=== PATIENT | male | born 1935 | race Caucasian/White ===

== ENCOUNTER → 2019-04-09 | Outpatient (CLI) | payer OTHER, BC | LOC: HYPER 06:48 | DX: L59.8 Other specified disorders of the skin and subcutaneous tissue related to radiation (principal); T81.89XD Other complications of procedures, not elsewhere classified, subsequent encounter; C4A.4 Merkel cell carcinoma of scalp and neck; C91.90 Lymphoid leukemia, unspecified not having achieved remission; Z85.828 Personal history of other malignant neoplasm of skin; Z85.46 Personal history of malignant neoplasm of prostate; Z79.01 Long term (current) use of anticoagulants; Z79.82 Long term (current) use of aspirin; Y84.2 Radiological procedure and radiotherapy as the cause of abnormal reaction of the patient, or of later complication, without mention of misadventure at the time of the procedure; Y83.8 Other surgical procedures as the cause of abnormal reaction of the patient, or of later complication, without mention of misadventure at the time of the procedure ==

== ENCOUNTER → 2019-04-30 | Outpatient (CLI) | payer OTHER, BC | LOC: HYPER 07:29 | DX: L59.8 Other specified disorders of the skin and subcutaneous tissue related to radiation (principal); T81.89XD Other complications of procedures, not elsewhere classified, subsequent encounter; C4A.4 Merkel cell carcinoma of scalp and neck; C91.10 Chronic lymphocytic leukemia of B-cell type not having achieved remission; C91.90 Lymphoid leukemia, unspecified not having achieved remission; Z79.01 Long term (current) use of anticoagulants; Z79.82 Long term (current) use of aspirin; Z85.46 Personal history of malignant neoplasm of prostate; Y84.2 Radiological procedure and radiotherapy as the cause of abnormal reaction of the patient, or of later complication, without mention of misadventure at the time of the procedure; Y83.8 Other surgical procedures as the cause of abnormal reaction of the patient, or of later complication, without mention of misadventure at the time of the procedure ==

== ENCOUNTER → 2019-05-21 | Outpatient (CLI) | payer OTHER, BC | LOC: HYPER 10:00 | DX: L59.8 Other specified disorders of the skin and subcutaneous tissue related to radiation (principal); T81.89XD Other complications of procedures, not elsewhere classified, subsequent encounter; C4A.4 Merkel cell carcinoma of scalp and neck; C91.90 Lymphoid leukemia, unspecified not having achieved remission; Z85.46 Personal history of malignant neoplasm of prostate; Z79.01 Long term (current) use of anticoagulants; Z79.82 Long term (current) use of aspirin; Y84.2 Radiological procedure and radiotherapy as the cause of abnormal reaction of the patient, or of later complication, without mention of misadventure at the time of the procedure; Y83.8 Other surgical procedures as the cause of abnormal reaction of the patient, or of later complication, without mention of misadventure at the time of the procedure ==

== ENCOUNTER → 2019-07-09 | Outpatient (CLI) | payer OTHER, BC | LOC: HYPER 09:36 | DX: T81.89XD Other complications of procedures, not elsewhere classified, subsequent encounter (principal); L59.8 Other specified disorders of the skin and subcutaneous tissue related to radiation; C4A.4 Merkel cell carcinoma of scalp and neck; C91.90 Lymphoid leukemia, unspecified not having achieved remission; L98.492 Non-pressure chronic ulcer of skin of other sites with fat layer exposed; Z79.01 Long term (current) use of anticoagulants; Z79.82 Long term (current) use of aspirin; Z85.46 Personal history of malignant neoplasm of prostate; Z85.828 Personal history of other malignant neoplasm of skin; Y83.8 Other surgical procedures as the cause of abnormal reaction of the patient, or of later complication, without mention of misadventure at the time of the procedure; Y84.2 Radiological procedure and radiotherapy as the cause of abnormal reaction of the patient, or of later complication, without mention of misadventure at the time of the procedure ==

== ENCOUNTER → 2019-08-06 | Outpatient (CLI) | payer OTHER, BC | LOC: HYPER 09:19 | DX: T81.89XD Other complications of procedures, not elsewhere classified, subsequent encounter (principal); L98.492 Non-pressure chronic ulcer of skin of other sites with fat layer exposed; L59.8 Other specified disorders of the skin and subcutaneous tissue related to radiation; C4A.4 Merkel cell carcinoma of scalp and neck; C91.90 Lymphoid leukemia, unspecified not having achieved remission; Z85.46 Personal history of malignant neoplasm of prostate; Z85.820 Personal history of malignant melanoma of skin; Z79.01 Long term (current) use of anticoagulants; Z79.82 Long term (current) use of aspirin; X58.XXXD Exposure to other specified factors, subsequent encounter; Y84.2 Radiological procedure and radiotherapy as the cause of abnormal reaction of the patient, or of later complication, without mention of misadventure at the time of the procedure; Y83.8 Other surgical procedures as the cause of abnormal reaction of the patient, or of later complication, without mention of misadventure at the time of the procedure ==

== ENCOUNTER → 2019-08-13 | Outpatient (CLI) | payer OTHER, BC | LOC: HYPER 09:36 | DX: T81.89XD Other complications of procedures, not elsewhere classified, subsequent encounter (principal); L98.492 Non-pressure chronic ulcer of skin of other sites with fat layer exposed; L59.8 Other specified disorders of the skin and subcutaneous tissue related to radiation; C4A.4 Merkel cell carcinoma of scalp and neck; C91.90 Lymphoid leukemia, unspecified not having achieved remission; Z79.01 Long term (current) use of anticoagulants; Z79.82 Long term (current) use of aspirin; Z85.828 Personal history of other malignant neoplasm of skin; Z85.46 Personal history of malignant neoplasm of prostate; Y84.2 Radiological procedure and radiotherapy as the cause of abnormal reaction of the patient, or of later complication, without mention of misadventure at the time of the procedure; Y83.8 Other surgical procedures as the cause of abnormal reaction of the patient, or of later complication, without mention of misadventure at the time of the procedure ==

== ENCOUNTER → 2019-08-20 | Outpatient (CLI) | payer OTHER, BC | LOC: HYPER 09:28 | DX: L59.8 Other specified disorders of the skin and subcutaneous tissue related to radiation (principal); L98.492 Non-pressure chronic ulcer of skin of other sites with fat layer exposed; C4A.4 Merkel cell carcinoma of scalp and neck; C91.90 Lymphoid leukemia, unspecified not having achieved remission; Z79.01 Long term (current) use of anticoagulants; Z79.82 Long term (current) use of aspirin; Z85.46 Personal history of malignant neoplasm of prostate; Z85.828 Personal history of other malignant neoplasm of skin; Y84.2 Radiological procedure and radiotherapy as the cause of abnormal reaction of the patient, or of later complication, without mention of misadventure at the time of the procedure ==

== ENCOUNTER → 2019-08-27 | Outpatient (CLI) | payer OTHER, BC | LOC: HYPER 09:02 | DX: T86.821 Skin graft (allograft) (autograft) failure (principal); L98.496 Non-pressure chronic ulcer of skin of other sites with bone involvement without evidence of necrosis; L59.8 Other specified disorders of the skin and subcutaneous tissue related to radiation; C4A.4 Merkel cell carcinoma of scalp and neck; C91.90 Lymphoid leukemia, unspecified not having achieved remission; Z85.46 Personal history of malignant neoplasm of prostate; Z79.01 Long term (current) use of anticoagulants; Z79.82 Long term (current) use of aspirin; Y83.2 Surgical operation with anastomosis, bypass or graft as the cause of abnormal reaction of the patient, or of later complication, without mention of misadventure at the time of the procedure; Y84.2 Radiological procedure and radiotherapy as the cause of abnormal reaction of the patient, or of later complication, without mention of misadventure at the time of the procedure ==

== ENCOUNTER → 2019-09-03 | Outpatient (CLI) | payer OTHER, BC | LOC: HYPER 09:30 | DX: T81.89XD Other complications of procedures, not elsewhere classified, subsequent encounter (principal); L98.496 Non-pressure chronic ulcer of skin of other sites with bone involvement without evidence of necrosis; L59.8 Other specified disorders of the skin and subcutaneous tissue related to radiation; C4A.4 Merkel cell carcinoma of scalp and neck; C91.90 Lymphoid leukemia, unspecified not having achieved remission; Z85.46 Personal history of malignant neoplasm of prostate; Z79.01 Long term (current) use of anticoagulants; Z79.82 Long term (current) use of aspirin; Y84.2 Radiological procedure and radiotherapy as the cause of abnormal reaction of the patient, or of later complication, without mention of misadventure at the time of the procedure; Y83.8 Other surgical procedures as the cause of abnormal reaction of the patient, or of later complication, without mention of misadventure at the time of the procedure ==

== ENCOUNTER → 2019-09-10 | Outpatient (CLI) | payer OTHER, BC | LOC: HYPER 09:43 | DX: T86.821 Skin graft (allograft) (autograft) failure (principal); L98.492 Non-pressure chronic ulcer of skin of other sites with fat layer exposed; L59.8 Other specified disorders of the skin and subcutaneous tissue related to radiation; C4A.4 Merkel cell carcinoma of scalp and neck; C91.10 Chronic lymphocytic leukemia of B-cell type not having achieved remission; Z79.82 Long term (current) use of aspirin; Z79.01 Long term (current) use of anticoagulants; Z85.46 Personal history of malignant neoplasm of prostate; Y84.2 Radiological procedure and radiotherapy as the cause of abnormal reaction of the patient, or of later complication, without mention of misadventure at the time of the procedure; Y83.2 Surgical operation with anastomosis, bypass or graft as the cause of abnormal reaction of the patient, or of later complication, without mention of misadventure at the time of the procedure ==

== ENCOUNTER → 2019-09-21 | Outpatient (CLI) | payer OTHER, BC | LOC: HYPER 11:51 | DX: T81.89XD Other complications of procedures, not elsewhere classified, subsequent encounter (principal); L59.8 Other specified disorders of the skin and subcutaneous tissue related to radiation; L98.492 Non-pressure chronic ulcer of skin of other sites with fat layer exposed; C4A.4 Merkel cell carcinoma of scalp and neck; C91.90 Lymphoid leukemia, unspecified not having achieved remission; Z48.89 Encounter for other specified surgical aftercare; Z79.01 Long term (current) use of anticoagulants; Z79.82 Long term (current) use of aspirin; Z85.46 Personal history of malignant neoplasm of prostate; Z85.828 Personal history of other malignant neoplasm of skin; Y84.2 Radiological procedure and radiotherapy as the cause of abnormal reaction of the patient, or of later complication, without mention of misadventure at the time of the procedure; Y83.8 Other surgical procedures as the cause of abnormal reaction of the patient, or of later complication, without mention of misadventure at the time of the procedure ==

== ENCOUNTER → 2019-10-01 | Outpatient (CLI) | payer OTHER, BC | LOC: HYPER 09:47 | DX: T86.821 Skin graft (allograft) (autograft) failure (principal); L98.496 Non-pressure chronic ulcer of skin of other sites with bone involvement without evidence of necrosis; L59.8 Other specified disorders of the skin and subcutaneous tissue related to radiation; C4A.4 Merkel cell carcinoma of scalp and neck; C91.10 Chronic lymphocytic leukemia of B-cell type not having achieved remission; Z79.01 Long term (current) use of anticoagulants; Z79.82 Long term (current) use of aspirin; Z97.4 Presence of external hearing-aid; Z85.46 Personal history of malignant neoplasm of prostate; Y84.2 Radiological procedure and radiotherapy as the cause of abnormal reaction of the patient, or of later complication, without mention of misadventure at the time of the procedure; Y83.2 Surgical operation with anastomosis, bypass or graft as the cause of abnormal reaction of the patient, or of later complication, without mention of misadventure at the time of the procedure ==

== ENCOUNTER → 2019-10-14 | Outpatient (CLI) | payer OTHER, BC | LOC: HYPER 08:16 | DX: T81.89XD Other complications of procedures, not elsewhere classified, subsequent encounter (principal); L98.496 Non-pressure chronic ulcer of skin of other sites with bone involvement without evidence of necrosis; L59.8 Other specified disorders of the skin and subcutaneous tissue related to radiation; C4A.4 Merkel cell carcinoma of scalp and neck; C91.10 Chronic lymphocytic leukemia of B-cell type not having achieved remission; Z85.46 Personal history of malignant neoplasm of prostate; Z85.828 Personal history of other malignant neoplasm of skin; Z97.4 Presence of external hearing-aid; Z79.01 Long term (current) use of anticoagulants; Z79.82 Long term (current) use of aspirin; Y84.2 Radiological procedure and radiotherapy as the cause of abnormal reaction of the patient, or of later complication, without mention of misadventure at the time of the procedure; Y83.8 Other surgical procedures as the cause of abnormal reaction of the patient, or of later complication, without mention of misadventure at the time of the procedure ==

== ENCOUNTER → 2019-10-29 | Outpatient (CLI) | payer OTHER, BC | LOC: HYPER 10-28 15:39 | DX: T81.89XD Other complications of procedures, not elsewhere classified, subsequent encounter (principal); L59.8 Other specified disorders of the skin and subcutaneous tissue related to radiation; L98.496 Non-pressure chronic ulcer of skin of other sites with bone involvement without evidence of necrosis; C4A.4 Merkel cell carcinoma of scalp and neck; C91.90 Lymphoid leukemia, unspecified not having achieved remission; Z48.89 Encounter for other specified surgical aftercare; Z79.01 Long term (current) use of anticoagulants; Z79.82 Long term (current) use of aspirin; Z85.46 Personal history of malignant neoplasm of prostate; Z85.828 Personal history of other malignant neoplasm of skin; Y84.2 Radiological procedure and radiotherapy as the cause of abnormal reaction of the patient, or of later complication, without mention of misadventure at the time of the procedure; Y83.8 Other surgical procedures as the cause of abnormal reaction of the patient, or of later complication, without mention of misadventure at the time of the procedure ==

== ENCOUNTER → 2019-11-12 | Outpatient (CLI) | payer OTHER, BC | LOC: HYPER 08:25 | DX: L59.8 Other specified disorders of the skin and subcutaneous tissue related to radiation (principal); T86.821 Skin graft (allograft) (autograft) failure; L98.496 Non-pressure chronic ulcer of skin of other sites with bone involvement without evidence of necrosis; C4A.4 Merkel cell carcinoma of scalp and neck; C91.90 Lymphoid leukemia, unspecified not having achieved remission; Z48.89 Encounter for other specified surgical aftercare; Z85.828 Personal history of other malignant neoplasm of skin; Z79.01 Long term (current) use of anticoagulants; Z79.82 Long term (current) use of aspirin; Z85.46 Personal history of malignant neoplasm of prostate; Y84.2 Radiological procedure and radiotherapy as the cause of abnormal reaction of the patient, or of later complication, without mention of misadventure at the time of the procedure; Y83.2 Surgical operation with anastomosis, bypass or graft as the cause of abnormal reaction of the patient, or of later complication, without mention of misadventure at the time of the procedure ==

== ENCOUNTER → 2019-11-26 | Outpatient (CLI) | payer OTHER, BC | LOC: HYPER 09:47 | DX: T81.89XD Other complications of procedures, not elsewhere classified, subsequent encounter (principal); L98.496 Non-pressure chronic ulcer of skin of other sites with bone involvement without evidence of necrosis; L59.8 Other specified disorders of the skin and subcutaneous tissue related to radiation; C4A.4 Merkel cell carcinoma of scalp and neck; C91.90 Lymphoid leukemia, unspecified not having achieved remission; Z48.89 Encounter for other specified surgical aftercare; Z79.01 Long term (current) use of anticoagulants; Z79.82 Long term (current) use of aspirin; Z85.46 Personal history of malignant neoplasm of prostate; Z85.828 Personal history of other malignant neoplasm of skin; Y84.2 Radiological procedure and radiotherapy as the cause of abnormal reaction of the patient, or of later complication, without mention of misadventure at the time of the procedure; Y83.8 Other surgical procedures as the cause of abnormal reaction of the patient, or of later complication, without mention of misadventure at the time of the procedure ==

== ENCOUNTER → 2019-12-17 | Outpatient (CLI) | payer OTHER, BC | LOC: HYPER 08:16 | DX: T81.89XD Other complications of procedures, not elsewhere classified, subsequent encounter (principal); L59.8 Other specified disorders of the skin and subcutaneous tissue related to radiation; L98.496 Non-pressure chronic ulcer of skin of other sites with bone involvement without evidence of necrosis; C4A.4 Merkel cell carcinoma of scalp and neck; C91.90 Lymphoid leukemia, unspecified not having achieved remission; H90.6 Mixed conductive and sensorineural hearing loss, bilateral; Z48.89 Encounter for other specified surgical aftercare; Z79.01 Long term (current) use of anticoagulants; Z79.82 Long term (current) use of aspirin; Z85.46 Personal history of malignant neoplasm of prostate; Z85.828 Personal history of other malignant neoplasm of skin; Y84.2 Radiological procedure and radiotherapy as the cause of abnormal reaction of the patient, or of later complication, without mention of misadventure at the time of the procedure; Y83.8 Other surgical procedures as the cause of abnormal reaction of the patient, or of later complication, without mention of misadventure at the time of the procedure ==

== ENCOUNTER → 2020-01-07 | Outpatient (CLI) | payer OTHER, BC | LOC: HYPER 07:28 | PROVIDERS: ATTEND Emergency Medicine | DX: T81.89XD Other complications of procedures, not elsewhere classified, subsequent encounter (principal); L98.492 Non-pressure chronic ulcer of skin of other sites with fat layer exposed; L59.8 Other specified disorders of the skin and subcutaneous tissue related to radiation; C4A.4 Merkel cell carcinoma of scalp and neck; C91.90 Lymphoid leukemia, unspecified not having achieved remission; H90.8 Mixed conductive and sensorineural hearing loss, unspecified; Z48.89 Encounter for other specified surgical aftercare; Z79.01 Long term (current) use of anticoagulants; Z79.82 Long term (current) use of aspirin; Z85.828 Personal history of other malignant neoplasm of skin; Z85.46 Personal history of malignant neoplasm of prostate; Z85.22 Personal history of malignant neoplasm of nasal cavities, middle ear, and accessory sinuses; Y83.8 Other surgical procedures as the cause of abnormal reaction of the patient, or of later complication, without mention of misadventure at the time of the procedure ==

== ENCOUNTER → 2020-02-04 | Outpatient (CLI) | payer OTHER, BC | LOC: HYPER 06:56 | PROVIDERS: ATTEND Emergency Medicine | DX: T81.89XD Other complications of procedures, not elsewhere classified, subsequent encounter (principal); L59.8 Other specified disorders of the skin and subcutaneous tissue related to radiation; L98.496 Non-pressure chronic ulcer of skin of other sites with bone involvement without evidence of necrosis; C4A.4 Merkel cell carcinoma of scalp and neck; C91.90 Lymphoid leukemia, unspecified not having achieved remission; H90.6 Mixed conductive and sensorineural hearing loss, bilateral; Z48.89 Encounter for other specified surgical aftercare; Z79.01 Long term (current) use of anticoagulants; Z79.82 Long term (current) use of aspirin; Z85.46 Personal history of malignant neoplasm of prostate; Z85.828 Personal history of other malignant neoplasm of skin; Y84.2 Radiological procedure and radiotherapy as the cause of abnormal reaction of the patient, or of later complication, without mention of misadventure at the time of the procedure; Y83.8 Other surgical procedures as the cause of abnormal reaction of the patient, or of later complication, without mention of misadventure at the time of the procedure ==

== ENCOUNTER → 2020-03-03 | Outpatient (CLI) | payer OTHER, BC | LOC: HYPER 09:04 | PROVIDERS: ATTEND Emergency Medicine | DX: T81.89XD Other complications of procedures, not elsewhere classified, subsequent encounter (principal); L59.8 Other specified disorders of the skin and subcutaneous tissue related to radiation; L98.492 Non-pressure chronic ulcer of skin of other sites with fat layer exposed; C4A.4 Merkel cell carcinoma of scalp and neck; H90.6 Mixed conductive and sensorineural hearing loss, bilateral; C91.90 Lymphoid leukemia, unspecified not having achieved remission; Z48.89 Encounter for other specified surgical aftercare; Z79.01 Long term (current) use of anticoagulants; Z79.82 Long term (current) use of aspirin; Z85.46 Personal history of malignant neoplasm of prostate; Z85.828 Personal history of other malignant neoplasm of skin; Z85.22 Personal history of malignant neoplasm of nasal cavities, middle ear, and accessory sinuses; Y83.8 Other surgical procedures as the cause of abnormal reaction of the patient, or of later complication, without mention of misadventure at the time of the procedure ==

== ENCOUNTER → 2020-03-31 | Outpatient (CLI) | payer OTHER, BC | LOC: HYPER 09:07 | PROVIDERS: ATTEND Emergency Medicine | DX: T81.89XD Other complications of procedures, not elsewhere classified, subsequent encounter (principal); L59.8 Other specified disorders of the skin and subcutaneous tissue related to radiation; L98.496 Non-pressure chronic ulcer of skin of other sites with bone involvement without evidence of necrosis; C4A.4 Merkel cell carcinoma of scalp and neck; C91.90 Lymphoid leukemia, unspecified not having achieved remission; H90.6 Mixed conductive and sensorineural hearing loss, bilateral; Z48.89 Encounter for other specified surgical aftercare; Z79.01 Long term (current) use of anticoagulants; Z79.82 Long term (current) use of aspirin; Z85.46 Personal history of malignant neoplasm of prostate; Z85.828 Personal history of other malignant neoplasm of skin; Y83.8 Other surgical procedures as the cause of abnormal reaction of the patient, or of later complication, without mention of misadventure at the time of the procedure ==

== ENCOUNTER → 2020-04-28 | Outpatient (CLI) | payer OTHER, BC | LOC: HYPER 08:17 | PROVIDERS: ATTEND Emergency Medicine | DX: T81.89XD Other complications of procedures, not elsewhere classified, subsequent encounter (principal); L59.8 Other specified disorders of the skin and subcutaneous tissue related to radiation; L98.492 Non-pressure chronic ulcer of skin of other sites with fat layer exposed; C4A.4 Merkel cell carcinoma of scalp and neck; C91.90 Lymphoid leukemia, unspecified not having achieved remission; H90.6 Mixed conductive and sensorineural hearing loss, bilateral; Z48.89 Encounter for other specified surgical aftercare; Z79.01 Long term (current) use of anticoagulants; Z79.82 Long term (current) use of aspirin; Z85.46 Personal history of malignant neoplasm of prostate; Z85.828 Personal history of other malignant neoplasm of skin; Y84.2 Radiological procedure and radiotherapy as the cause of abnormal reaction of the patient, or of later complication, without mention of misadventure at the time of the procedure; Y83.8 Other surgical procedures as the cause of abnormal reaction of the patient, or of later complication, without mention of misadventure at the time of the procedure ==

== ENCOUNTER → 2020-05-26 | Outpatient (CLI) | payer OTHER, BC | LOC: HYPER 09:06 | PROVIDERS: ATTEND Emergency Medicine | DX: T81.89XD Other complications of procedures, not elsewhere classified, subsequent encounter (principal); L59.8 Other specified disorders of the skin and subcutaneous tissue related to radiation; L98.496 Non-pressure chronic ulcer of skin of other sites with bone involvement without evidence of necrosis; C4A.4 Merkel cell carcinoma of scalp and neck; C91.90 Lymphoid leukemia, unspecified not having achieved remission; Z48.89 Encounter for other specified surgical aftercare; Z79.01 Long term (current) use of anticoagulants; Z79.82 Long term (current) use of aspirin; Z85.828 Personal history of other malignant neoplasm of skin; Z85.46 Personal history of malignant neoplasm of prostate; Z85.22 Personal history of malignant neoplasm of nasal cavities, middle ear, and accessory sinuses; Y84.2 Radiological procedure and radiotherapy as the cause of abnormal reaction of the patient, or of later complication, without mention of misadventure at the time of the procedure; Y83.8 Other surgical procedures as the cause of abnormal reaction of the patient, or of later complication, without mention of misadventure at the time of the procedure ==

== ENCOUNTER → 2020-07-07 | Outpatient (CLI) | payer OTHER, BC | LOC: HYPER 09:04 | PROVIDERS: ATTEND Emergency Medicine | DX: T81.89XD Other complications of procedures, not elsewhere classified, subsequent encounter (principal); L59.8 Other specified disorders of the skin and subcutaneous tissue related to radiation; L98.492 Non-pressure chronic ulcer of skin of other sites with fat layer exposed; C4A.4 Merkel cell carcinoma of scalp and neck; C91.90 Lymphoid leukemia, unspecified not having achieved remission; Z48.89 Encounter for other specified surgical aftercare; Z79.01 Long term (current) use of anticoagulants; Z79.82 Long term (current) use of aspirin; Z85.828 Personal history of other malignant neoplasm of skin; Z85.46 Personal history of malignant neoplasm of prostate; Z85.22 Personal history of malignant neoplasm of nasal cavities, middle ear, and accessory sinuses; Y84.2 Radiological procedure and radiotherapy as the cause of abnormal reaction of the patient, or of later complication, without mention of misadventure at the time of the procedure; Y83.8 Other surgical procedures as the cause of abnormal reaction of the patient, or of later complication, without mention of misadventure at the time of the procedure ==

== ENCOUNTER → 2020-08-11 | Outpatient (CLI) | payer OTHER, BC | LOC: HYPER 09:05 | PROVIDERS: ATTEND Emergency Medicine | DX: T81.89XD Other complications of procedures, not elsewhere classified, subsequent encounter (principal); L59.8 Other specified disorders of the skin and subcutaneous tissue related to radiation; L98.492 Non-pressure chronic ulcer of skin of other sites with fat layer exposed; C4A.4 Merkel cell carcinoma of scalp and neck; C91.90 Lymphoid leukemia, unspecified not having achieved remission; Z48.89 Encounter for other specified surgical aftercare; Z79.01 Long term (current) use of anticoagulants; Z79.82 Long term (current) use of aspirin; Z85.828 Personal history of other malignant neoplasm of skin; Z85.46 Personal history of malignant neoplasm of prostate; Z85.22 Personal history of malignant neoplasm of nasal cavities, middle ear, and accessory sinuses; Y84.2 Radiological procedure and radiotherapy as the cause of abnormal reaction of the patient, or of later complication, without mention of misadventure at the time of the procedure; Y83.8 Other surgical procedures as the cause of abnormal reaction of the patient, or of later complication, without mention of misadventure at the time of the procedure; H90.6 Mixed conductive and sensorineural hearing loss, bilateral ==

== ENCOUNTER → 2020-09-08 | Outpatient (CLI) | payer OTHER, BC | LOC: HYPER 09:23 | PROVIDERS: ATTEND Emergency Medicine | DX: T81.89XD Other complications of procedures, not elsewhere classified, subsequent encounter (principal); L59.8 Other specified disorders of the skin and subcutaneous tissue related to radiation; L98.492 Non-pressure chronic ulcer of skin of other sites with fat layer exposed; C4A.4 Merkel cell carcinoma of scalp and neck; C91.90 Lymphoid leukemia, unspecified not having achieved remission; H90.6 Mixed conductive and sensorineural hearing loss, bilateral; Z48.89 Encounter for other specified surgical aftercare; Z79.01 Long term (current) use of anticoagulants; Z79.82 Long term (current) use of aspirin; Z85.828 Personal history of other malignant neoplasm of skin; Z85.46 Personal history of malignant neoplasm of prostate; Z85.22 Personal history of malignant neoplasm of nasal cavities, middle ear, and accessory sinuses; Y84.2 Radiological procedure and radiotherapy as the cause of abnormal reaction of the patient, or of later complication, without mention of misadventure at the time of the procedure; Y83.8 Other surgical procedures as the cause of abnormal reaction of the patient, or of later complication, without mention of misadventure at the time of the procedure ==

== ENCOUNTER → 2020-09-29 | Outpatient (CLI) | payer OTHER, BC | LOC: HYPER 11:08 | PROVIDERS: ATTEND Emergency Medicine | DX: T81.89XD Other complications of procedures, not elsewhere classified, subsequent encounter (principal); L59.8 Other specified disorders of the skin and subcutaneous tissue related to radiation; L98.496 Non-pressure chronic ulcer of skin of other sites with bone involvement without evidence of necrosis; C4A.4 Merkel cell carcinoma of scalp and neck; C91.90 Lymphoid leukemia, unspecified not having achieved remission; H90.6 Mixed conductive and sensorineural hearing loss, bilateral; Z48.89 Encounter for other specified surgical aftercare; Z79.01 Long term (current) use of anticoagulants; Z79.82 Long term (current) use of aspirin; Z85.828 Personal history of other malignant neoplasm of skin; Z85.46 Personal history of malignant neoplasm of prostate; Z85.22 Personal history of malignant neoplasm of nasal cavities, middle ear, and accessory sinuses; Y84.2 Radiological procedure and radiotherapy as the cause of abnormal reaction of the patient, or of later complication, without mention of misadventure at the time of the procedure; Y83.8 Other surgical procedures as the cause of abnormal reaction of the patient, or of later complication, without mention of misadventure at the time of the procedure ==

== ENCOUNTER → 2020-11-17 | Outpatient (CLI) | payer OTHER, BC | LOC: HYPER 07:39 | PROVIDERS: ATTEND Emergency Medicine | DX: T81.89XD Other complications of procedures, not elsewhere classified, subsequent encounter (principal); L59.8 Other specified disorders of the skin and subcutaneous tissue related to radiation; L98.496 Non-pressure chronic ulcer of skin of other sites with bone involvement without evidence of necrosis; C4A.4 Merkel cell carcinoma of scalp and neck; C91.90 Lymphoid leukemia, unspecified not having achieved remission; H90.6 Mixed conductive and sensorineural hearing loss, bilateral; Z48.89 Encounter for other specified surgical aftercare; Z79.01 Long term (current) use of anticoagulants; Z79.82 Long term (current) use of aspirin; Z85.828 Personal history of other malignant neoplasm of skin; Z85.46 Personal history of malignant neoplasm of prostate; Z85.22 Personal history of malignant neoplasm of nasal cavities, middle ear, and accessory sinuses; Y84.2 Radiological procedure and radiotherapy as the cause of abnormal reaction of the patient, or of later complication, without mention of misadventure at the time of the procedure; Y83.8 Other surgical procedures as the cause of abnormal reaction of the patient, or of later complication, without mention of misadventure at the time of the procedure ==

== ENCOUNTER → 2021-01-10 | Outpatient (CLI) | payer OTHER, BC | LOC: HYPER 08:43 | PROVIDERS: ATTEND Emergency Medicine | DX: T81.89XD Other complications of procedures, not elsewhere classified, subsequent encounter (principal); L59.8 Other specified disorders of the skin and subcutaneous tissue related to radiation; L98.496 Non-pressure chronic ulcer of skin of other sites with bone involvement without evidence of necrosis; C4A.4 Merkel cell carcinoma of scalp and neck; C91.90 Lymphoid leukemia, unspecified not having achieved remission; H90.6 Mixed conductive and sensorineural hearing loss, bilateral; Z48.89 Encounter for other specified surgical aftercare; Z79.01 Long term (current) use of anticoagulants; Z79.82 Long term (current) use of aspirin; Z85.828 Personal history of other malignant neoplasm of skin; Z85.46 Personal history of malignant neoplasm of prostate; Z85.22 Personal history of malignant neoplasm of nasal cavities, middle ear, and accessory sinuses; Y84.2 Radiological procedure and radiotherapy as the cause of abnormal reaction of the patient, or of later complication, without mention of misadventure at the time of the procedure; Y83.8 Other surgical procedures as the cause of abnormal reaction of the patient, or of later complication, without mention of misadventure at the time of the procedure ==

== ENCOUNTER → 2021-02-16 | Outpatient (CLI) | payer OTHER, BC | LOC: HYPER 08:12 | PROVIDERS: ATTEND Emergency Medicine | DX: T86.821 Skin graft (allograft) (autograft) failure (principal); L98.496 Non-pressure chronic ulcer of skin of other sites with bone involvement without evidence of necrosis; L59.8 Other specified disorders of the skin and subcutaneous tissue related to radiation; C4A.4 Merkel cell carcinoma of scalp and neck; C91.10 Chronic lymphocytic leukemia of B-cell type not having achieved remission; Z79.01 Long term (current) use of anticoagulants; Z79.82 Long term (current) use of aspirin; Z97.4 Presence of external hearing-aid; Z85.828 Personal history of other malignant neoplasm of skin; Z85.46 Personal history of malignant neoplasm of prostate; Z98.890 Other specified postprocedural states; Y83.2 Surgical operation with anastomosis, bypass or graft as the cause of abnormal reaction of the patient, or of later complication, without mention of misadventure at the time of the procedure; Y84.2 Radiological procedure and radiotherapy as the cause of abnormal reaction of the patient, or of later complication, without mention of misadventure at the time of the procedure ==

== ENCOUNTER → 2021-03-23 | Outpatient (CLI) | payer OTHER, BC | LOC: HYPER 08:31 | PROVIDERS: ATTEND Emergency Medicine | DX: T86.821 Skin graft (allograft) (autograft) failure (principal); L98.496 Non-pressure chronic ulcer of skin of other sites with bone involvement without evidence of necrosis; L59.8 Other specified disorders of the skin and subcutaneous tissue related to radiation; C4A.4 Merkel cell carcinoma of scalp and neck; C91.10 Chronic lymphocytic leukemia of B-cell type not having achieved remission; Z79.01 Long term (current) use of anticoagulants; Z79.82 Long term (current) use of aspirin; Z97.4 Presence of external hearing-aid; Z85.828 Personal history of other malignant neoplasm of skin; Z85.46 Personal history of malignant neoplasm of prostate; Y84.2 Radiological procedure and radiotherapy as the cause of abnormal reaction of the patient, or of later complication, without mention of misadventure at the time of the procedure; Y83.2 Surgical operation with anastomosis, bypass or graft as the cause of abnormal reaction of the patient, or of later complication, without mention of misadventure at the time of the procedure; Z48.89 Encounter for other specified surgical aftercare ==

== ENCOUNTER → 2021-05-25 | Outpatient (CLI) | payer OTHER, BC | LOC: HYPER 09:22 | PROVIDERS: ATTEND Emergency Medicine | DX: T86.821 Skin graft (allograft) (autograft) failure (principal); T81.89XD Other complications of procedures, not elsewhere classified, subsequent encounter; L98.496 Non-pressure chronic ulcer of skin of other sites with bone involvement without evidence of necrosis; L59.8 Other specified disorders of the skin and subcutaneous tissue related to radiation; C4A.4 Merkel cell carcinoma of scalp and neck; C91.90 Lymphoid leukemia, unspecified not having achieved remission; Z79.01 Long term (current) use of anticoagulants; Z79.82 Long term (current) use of aspirin; Z97.4 Presence of external hearing-aid; Z85.46 Personal history of malignant neoplasm of prostate; Z85.828 Personal history of other malignant neoplasm of skin; Z79.899 Other long term (current) drug therapy; Y83.2 Surgical operation with anastomosis, bypass or graft as the cause of abnormal reaction of the patient, or of later complication, without mention of misadventure at the time of the procedure; Y83.8 Other surgical procedures as the cause of abnormal reaction of the patient, or of later complication, without mention of misadventure at the time of the procedure; Y84.2 Radiological procedure and radiotherapy as the cause of abnormal reaction of the patient, or of later complication, without mention of misadventure at the time of the procedure ==